=== PATIENT | female | born 1975 | race Caucasian/White ===

== ENCOUNTER 2016-07-16 06:11 | Inpatient (IN) | payer MEDICAID ==
[2016-07-14 17:03] LABS: ADD UMIC NO; URINE BILIRUBIN (Dip) NEGATIVE (NEGATIVE); URINE BLOOD (Dip) NEGATIVE (NEGATIVE); URINE COLOR LT. YELLOW (YELLOW); URINE GLUCOSE (Dip) NEGATIVE (NEGATIVE); URINE KETONES (Dip) NEGATIVE (NEGATIVE); URINE LEUKOCYTE ESTERASE (Dip) NEGATIVE (NEGATIVE); URINE NITRITE (Dip) NEGATIVE (NEGATIVE); URINE TOTAL PROTEIN (Dip) NEGATIVE (NEGATIVE); URINE UROBILINOGEN (Dip) 0.2 E.U./dL (0.1-1.0)
[2016-07-14 17:08] LABS: BASOPHILS % 0.3 % (0.0-2.0); EOSINOPHILS % 0.7 % (0.0-7.0); HEMATOCRIT 34.7 % (37.0-47.0); HEMOGLOBIN 11.7 g/dl (12.0-16.0); LYMPHOCYTES # 1.8 10^3/ul (0.8-2.9); LYMPHOCYTES % 27.8 % (15.0-51.0); MEAN CORPUSCULAR HEMOGLOBIN 29.6 pg (29.0-33.0); MEAN CORPUSCULAR HGB CONC 33.8 g/dl (32.0-37.0); MEAN CORPUSCULAR VOLUME 87.8 fl (82.0-101.0); MEAN PLATELET VOLUME 11.7 fl (7.4-10.4); MONOCYTE # 0.4 10^3/ul (0.3-0.9); MONOCYTES % 6.3 % (0.0-11.0); NEUTROPHIL # 4.2 10^3/ul (1.6-7.5); NEUTROPHILS % 64.9 % (39.0-77.0); PLATELET COUNT 113 10^3/UL (140-440); RED BLOOD COUNT 3.95 10^6/ul (4.20-5.40); RED CELL DISTRIBUTION WIDTH 16.4 % (11.5-14.5); UNCORRECTED WBC 6.5 10^3/ul (4.8-10.8); WHITE BLOOD COUNT 6.5 10^3/ul (4.8-10.8)
[2016-07-14 17:13] LABS: INR 0.89; PARTIAL THROMBOPLASTIN TIME 26.8 Sec (25.0-35.0); PT RATIO 0.9
[2016-07-14 17:15] LABS: ALBUMIN 3.4 g/dl (3.3-4.9); CONDITION 1; LH ANALYZER COMMENTS 1
[2016-07-14 17:16] LABS: POTASSIUM 4.2 mmol/L (3.5-5.1)
[2016-07-14 17:18] LABS: ALBUMIN/GLOBULIN RATIO 1.13; BILIRUBIN,INDIRECT 0.3 mg/dl (0-1.1); BILIRUBIN,TOTAL 0.3 mg/dl (0.2-1.3); CREATININE 0.56 mg/dl (0.44-1.00); TOTAL PROTEIN 6.4 g/dl (6.1-8.1)
[2016-07-14 17:19] LABS: CALCIUM 9.3 mg/dl (8.4-10.2)
[~2016-07-16] VITALS: Ht 162.6 cm; Wt 76.6 kg
[2016-07-16 06:19] VITALS: Ht 162.6 cm; Wt 76.6 kg
[2016-07-16] MEDS ORDERED: MISOPROSTOL 200 MCG TAB PR PRN ×2 (06:30→11:30)
[2016-07-16] MEDS ORDERED: CEFAZOLIN 2 GM/50 ML (PMX) 50 ML IV SCH (06:30)
[2016-07-16] MEDS ORDERED: CARBOPROST 250 MCG INJ IM PRN ×2 (06:30→11:30)
[2016-07-16] MEDS ORDERED: METHYLERGONOVINE 0.2 MG INJ IM PRN ×2 (06:30→11:30)
[2016-07-16] MEDS ORDERED: OXYTOCIN 30 UNITS/LR 500 ML IV SCH (06:30)
[2016-07-16] MEDS ORDERED: OXYTOCIN 30 UNITS/LR 500 ML IV PRN ×2 (06:30→11:30)
[2016-07-16 06:48] LABS: ADD SCAN DIFF NO
[2016-07-16 07:00] LABS: BASOPHILS % 0.2 % (0.0-2.0); EOSINOPHILS # 0.1 10^3/ul (0.0-0.5); EOSINOPHILS % 1.3 % (0.0-7.0); HEMATOCRIT 35.2 % (37.0-47.0); HEMOGLOBIN 11.5 g/dl (12.0-16.0); LYMPHOCYTES # 1.8 10^3/ul (0.8-2.9); LYMPHOCYTES % 29.5 % (15.0-51.0); MEAN CORPUSCULAR HGB CONC 32.7 g/dl (32.0-37.0); MEAN CORPUSCULAR VOLUME 88.9 fl (82.0-101.0); MEAN PLATELET VOLUME 13.6 fl (7.4-10.4); MONOCYTE # 0.3 10^3/ul (0.3-0.9); MONOCYTES % 5.2 % (0.0-11.0); NEUTROPHIL # 3.7 10^3/ul (1.6-7.5); NEUTROPHILS % 62.8 % (39.0-77.0); PLATELET COUNT 118 10^3/UL (140-415); RED BLOOD COUNT 3.96 10^6/ul (4.20-5.40); RED CELL DISTRIBUTION WIDTH 15.2 % (11.5-14.5); WHITE BLOOD COUNT 5.9 10^3/ul (4.8-10.8)
[2016-07-16 07:07] LABS: INR 0.91; PROTIME 12.3 Sec (12.2-14.2)
[2016-07-16 07:08] LABS: PARTIAL THROMBOPLASTIN TIME 25.2 Sec (25.0-35.0)
[2016-07-16] MEDS ORDERED: morphine SULFATE/PF (10 MG/10 ML) INJ ONE (07:29)
[2016-07-16] MEDS ORDERED: ONDANSETRON 4 MG INJ ONE (07:29)
[2016-07-16] MEDS ORDERED: KETOROLAC 30 MG INJ ONE (07:29)
[2016-07-16] MEDS ORDERED: LACTATED RINGER'S 1,000 ML IV ONE (07:30)
[2016-07-16] MEDS ORDERED: EPHEDrine SULFATE 50 MG/5 ML SYG ONE (07:49)
--- NOTE | 2016-07-16 08:10 | PREOPHP ---
DATE OF ADMISSION: 07/16/2016 She is to be admitted tomorrow 03/15/2017 to labor and delivery for a repeat and tubal lig ation at term. HISTORY OF PRESENT ILLNESS: This is a 40-year-old, 6, para 4, with a previous sect ion, who has requested a repeat section for the of this child and a tubal ligation fo r sterilization. The alternatives, benefits, risks, and possible complications of these procedures were discussed with the patient in detail in the office, as well as a 1% failure rate of the tubal l igation. Complications likely like hemorrhage, infection, pelvic organ injury during the procedure, and postoperative complications, including thromboembolic phenomena, were discussed. She was allow ed to ask questions. All her questions were answered to her satisfaction, and she signed the [facility] surgical informed consent. PAST MEDICAL HISTORY: The patient denies any medical problems including cardiovascular disease, christie betes, renal disease, liver disease, thyroid disease, or neurological problems. ALLERGIES: NO KNOWN ALLERGIES. MEDICATIONS: She takes vitamins and iron only. OBSTETRICAL HISTORY: She has had, counting this one, 6 pregnancies, 4 of which I have delivered. T he last one was delivered by section at this hospital on 07/28/2009. FAMILY HISTORY: Noncontributory. REVIEW OF SYSTEMS: A 12-point review of systems is noncontributory. PHYSICAL EXAMINATION: GENERAL: Well-developed and nourished with a height 5 feet 5 inches and a weight of 171 pounds. VITAL SIGNS: Showed the temperature to be 97.2, blood pressure 170/67, respirations 16 per minute, pulse is 72 per minute, regular. HEENT: Within normal limits. Pupils are PERRLA. NECK: Supple. The thyroid is not palpable. There is no lymphadenopathy. BREASTS: Show no masses or lumps. LUNGS: Clear to percussion and auscultation. HEART: Normal sinus rhythm without a murmur. ABDOMEN: Soft. Uterus enlarged to 36 cm above pubic bone, single baby, longitudinal lie, cephalic presentation. heart tone 140-160 per minute. PELVIC: Normal external genitalia. Cervix is long, closed. Membranes are intact. EXTREMITIES: Within normal limits. NEUROLOGIC: Also normal. IMPRESSION: 1. 39 weeks' gestation. 2. Previous section. 3. Multiparity. The patient desires sterilization at the time of repeat section. Dictated By: CAROLINA BERG MD CR/NTS Conf#: [id number] DID#: [id number] CC: HEVER HERNANDEZ MD;*EndCC*
[2016-07-16] MEDS ORDERED: NALOXONE (0.4 MG/ML) INJ IV PRN (09:00)
[2016-07-16] MEDS ORDERED: HYDROmorphONE 1 MG/ML SYG IV PRN ×3 (09:00)
[2016-07-16] MEDS ORDERED: METOCLOPRAMIDE 10 MG INJ IV PRN (09:00)
[2016-07-16] MEDS ORDERED: DIPHENHYDRAMINE 50 MG INJ IV PRN ×2 (09:00)
[2016-07-16] MEDS ORDERED: MEPERIDINE 25 MG INJ IV PRN (09:00)
[2016-07-16] MEDS ORDERED: HYDROmorphONE (0.2 MG/ML) 10ML SYG IV PRN ×3 (09:00)
[2016-07-16] MEDS ORDERED: ONDANSETRON 4 MG INJ IV PRN ×2 (09:00)
[2016-07-16 11:30] VITALS: BP 121/74; PULSE 78; RESP 20
[2016-07-16] MEDS ORDERED: OXYCODONE/ACETAMINOPHEN (5/325) TAB PO PRN (11:30)
[2016-07-16] MEDS ORDERED: LANOLIN 7 GM TUBE TOP PRN (11:30)
--- NOTE | 2016-07-16 13:08 | OPR ---
DATE OF OPERATION: 07/16/2016 PREOPERATIVE DIAGNOSES 1. Thirty-nine weeks' gestation. 2. Previous section. 3. Multiparity. PREOPERATIVE DIAGNOSES 1. Thirty-nine weeks' gestation. 2. Previous section. 3. Multiparity. OPERATION PERFORMED: 1. Repeat low segment transverse section. 2. Bilateral salpingectomy. SURGEON: Carolina Waters MD TEAM PSYCHOLOGIST: Uli Watkins MD ANESTHESIOLOGIST: Dr. Reeves. ANESTHESIOLOGY: Spinal. ESTIMATED BLOOD LOSS: 600 mL. COMPLICATIONS: None. SPECIMENS: Portions of both fallopian tubes were sent to Pathology. FINDINGS: Baby girl, scores of 8 and 9. PROCEDURE AND FINDINGS: With the patient under spinal anesthesia, she was laid on the table in the dorsal recumbent position, tilted to the left side. She had a Leonard catheter draining her bladder. Her abdomen and thighs were prepped with ChloraPrep and, after 3 minutes, she was draped in the usu al sterile fashion for this procedure. A Pfannenstiel incision was done and carried through all lay ers of the abdominal wall. The uterine segment was opened transversely high and a living female carrie antony was delivered from an OP position and handed to the respiratory team trial consultant, who found her to mcintyre ve scores of 8 at first minute and 9 at five minutes. Sample cord blood was obtained. The pl marietta was delivered. The uterine cavity was cleaned with a clean laparotomy pad. The incision in the uterus was closed with a continuous running stitch of 0 PDS. Good hemostasis was obtained. The n, the tubal ligation was carried out starting on the left side, picking up the tube in its mid port ion with a Raleigh clamp and tying it on its base twice with 0 plain catgut. A portion of the tube was cut and sent to Pathology. The same was repeated on the contralateral side. The pelvis was tho roughly cleaned with clean moist laparotomy pads. The first count of sponges was correct at this po int. The incisions were checked for bleeders and there were none. The uterine incision was covered with Interceed to avoid future adhesions. Then, the abdomen of the patient was closed in layers st arting with the peritoneum with continuous stitch of 0 chromic catgut. The fascia was closed with c ontinuous running stitch of 0 Vicryl. Finally, the edges of the skin were closed with subcuticular 4-0 Monocryl. Sterile compressive dressing was applied and the patient was taken to recovery room w ith all vital signs stable. EBL was 600 mL of blood. Needle, sponge, and instrument count at the e nd of the procedure was correct twice. Dictated By: CAROLINA WATERS MD CR/NTS Conf#: [id number] DID#: [id number] CC: ROOPA REEVES MD; ULI WATKINS MD;*EndCC*
[2016-07-16] MEDS: LACTATED RINGER'S 1,000 ML IV SCH (14:12)
[2016-07-16] MEDS: CEFAZOLIN 2 GM/50 ML (PMX) 50 ML IV SCH ×2 (14:26→22:38)
[2016-07-16 16:00] VITALS: BP 134/82; PULSE 79; RESP 18
[2016-07-16] MEDS: KETOROLAC 30 MG INJ IV PRN (18:21)
[2016-07-16 20:05] VITALS: BP 100/56; PULSE 67; RESP 16
[2016-07-16] MEDS: SENNA/DOCUSATE NA (8.6MG/50MG) TAB PO SCH (20:53)
[2016-07-17 00:15] VITALS: BP 123/69; PULSE 74; RESP 18
[2016-07-17] MEDS: LACTATED RINGER'S 1,000 ML IV SCH ×2 (00:17→03:19)
[2016-07-17] MEDS: KETOROLAC 30 MG INJ IV PRN ×2 (01:52→08:36)
[2016-07-17 04:00] VITALS: BP 100/59; PULSE 80; RESP 18
[2016-07-17] MEDS: CEFAZOLIN 2 GM/50 ML (PMX) 50 ML IV SCH (06:30)
[2016-07-17 07:42] LABS: ADD SCAN DIFF NO
[2016-07-17 07:48] LABS: ABNORMAL IP MESSAGE 1; BASOPHILS % 0.1 % (0.0-2.0); EOSINOPHILS # 0.1 10^3/ul (0.0-0.5); EOSINOPHILS % 0.6 % (0.0-7.0); HEMATOCRIT 26.4 % (37.0-47.0); HEMOGLOBIN 8.8 g/dl (12.0-16.0); LYMPHOCYTES # 1.2 10^3/ul (0.8-2.9); LYMPHOCYTES % 14.4 % (15.0-51.0); MEAN CORPUSCULAR HEMOGLOBIN 29.8 pg (29.0-33.0); MEAN CORPUSCULAR HGB CONC 33.3 g/dl (32.0-37.0); MEAN CORPUSCULAR VOLUME 89.5 fl (82.0-101.0); MEAN PLATELET VOLUME 13.2 fl (7.4-10.4); MONOCYTE # 0.3 10^3/ul (0.3-0.9); NEUTROPHIL # 6.7 10^3/ul (1.6-7.5); NEUTROPHILS % 80.3 % (39.0-77.0); PLATELET COUNT 92 10^3/UL (140-415); RED BLOOD COUNT 2.95 10^6/ul (4.20-5.40); RED CELL DISTRIBUTION WIDTH 15.6 % (11.5-14.5); WHITE BLOOD COUNT 8.4 10^3/ul (4.8-10.8)
[2016-07-17 08:00] VITALS: BP 116/71; PULSE 70; RESP 18
[2016-07-17] MEDS: SENNA/DOCUSATE NA (8.6MG/50MG) TAB PO SCH ×2 (08:36→21:15)
--- NOTE | 2016-07-17 10:40 | PN ---
Date/Time of Note Date/Time of Note DATE: 07/17/16 TIME: 10:38 OB Subjective Subjective Subjective Post C Section day 1 Patient is doing well, Ambulatory She is afebrile Abdomen is soft , Fundus is firm Moderate amount of lochia Breasts are soft, Nipples are intact No calf tenderness. (Incision is clean Laboratory Tests Test 07/17/16 07:05 Basophils # 0.010^3/ul Basophils % 0.1% Eosinophils # 0.110^3/ul Eosinophils % 0.6% Hematocrit 26.4% Hemoglobin 8.8g/dl Lymphocytes # 1.210^3/ul Lymphocytes % 14.4% Mean Corpuscular Hemoglobin 29.8pg Mean Corpuscular Hemoglobin Concent 33.3g/dl Mean Corpuscular Volume 89.5fl Mean Platelet Volume 13.2fl Monocytes # 0.310^3/ul Monocytes % 4.0% Neutrophils # 6.710^3/ul Neutrophils % 80.3% Nucleated Red Blood Cells # 0.010^3/ul Nucleated Red Blood Cells % 0.0/100WBC Platelet Count 9210^3/UL Red Blood Count 2.9510^6/ul Red Cell Distribution Width 15.6% White Blood Count 8.410^3/ul Current Medications Medications (Trade) Dose Ordered Sig/Anitra Route PRN Reason Start Time Stop Time Status Last Admin Dose Admin Cefazolin Sodium/ Dextrose 50 ml @ 100 mls/hr ONCE IV 07/16/16 06:30 07/16/16 11:23 DC Oxytocin/Lactated Ringer's 500 ml @ 125 mls/hr ONCE IV 07/16/16 06:30 07/16/16 11:23 DC 07/16/16 09:30 Oxytocin/Lactated Ringer's 500 ml @ 0 mls/hr ONCE PRN IV For Hemorrhage Management 07/16/16 06:30 07/16/16 11:23 DC Methylergonovine Maleate (Methergine) 0.2 mg ONCE PRN IM VAGINAL BLEEDING 07/16/16 06:30 07/16/16 11:23 DC Carboprost Tromethamine (Hemabate) 250 mcg ONCE PRN IM VAGINAL BLEEDING 07/16/16 06:30 07/16/16 11:23 DC Misoprostol 1000 mcg 1,000 mcg ONCE PRN MA VAGINAL BLEEDING 07/16/16 06:30 07/16/16 11:23 DC Lactated Ringer's (Lr) 1,000 ml @ 1,000 mls/hr Q1H ONCE IV 07/16/16 07:30 07/16/16 08:54 DC 07/16/16 07:24 Morphine Sulfate (Duramorph) 10 mg STK-MED ONCE .ROUTE 07/16/16 07:29 07/16/16 07:30 DC Ondansetron HCl (Zofran Inj) 4 mg STK-MED ONCE .ROUTE 07/16/16 07:29 07/16/16 07:30 DC Ketorolac Tromethamine (Toradol) 30 mg STK-MED ONCE .ROUTE 07/16/16 07:29 07/16/16 07:30 DC Ephedrine Sulfate 50 mg STK-MED ONCE .ROUTE 07/16/16 07:49 07/16/16 07:50 DC Hydromorphone HCl (Dilaudid (Rec)) 0.2 mg PACU ORDER PRN IV MILD PAIN LEVEL 1-3 07/16/16 09:00 07/16/16 11:23 DC Hydromorphone HCl (Dilaudid (Rec)) 0.4 mg PACU ORDER PRN IV MODERATE PAIN LEVEL 4-6 07/16/16 09:00 07/16/16 11:23 DC Hydromorphone HCl (Dilaudid (Rec)) 0.6 mg PACU ORDER PRN IV SEVERE PAIN LEVEL 7-10 07/16/16 09:00 07/16/16 11:23 DC Ondansetron HCl (Zofran Inj) 4 mg PACU ORDER PRN IV NAUSEA AND/OR VOMITING 07/16/16 09:00 07/16/16 11:23 DC Metoclopramide HCl (Reglan) 10 mg PACU ORDER PRN IV NAUSEA AND/OR VOMITING 07/16/16 09:00 07/16/16 11:23 DC Meperidine HCl (Demerol) 25 mg PACU ORDER PRN IV POST-OP RIGORS 07/16/16 09:00 07/16/16 11:23 DC Diphenhydramine HCl (Benadryl) 25 mg PACU ORDER PRN IV PRURITUS 07/16/16 09:00 07/16/16 11:23 DC Naloxone HCl (Narcan) 0.1 mg Q2M PRN IV FOR RESP RATE 8 OR LESS 07/16/16 09:00 07/17/16 08:59 DC Ketorolac Tromethamine (Toradol) 30 mg Q6H PRN IV PAIN 07/16/16 09:00 07/17/16 08:59 DC 07/17/16 08:36 Hydromorphone HCl (Dilaudid) 1 mg Q3H PRN IV BREAKTHROUGH PAIN 07/16/16 09:00 07/17/16 08:59 DC Hydromorphone HCl (Dilaudid) 0.2 mg Q3H PRN IV PAIN LEVEL 1-5 07/16/16 09:00 07/17/16 08:59 DC Hydromorphone HCl (Dilaudid) 0.4 mg Q3H PRN IV PAIN LEVEL 6-10 07/16/16 09:00 07/17/16 08:59 DC Diphenhydramine HCl (Benadryl) 25 mg Q6H PRN IV ITCHING 07/16/16 09:00 07/17/16 08:59 DC Ondansetron HCl 4 mg 4 mg Q6H PRN IV NAUSEA AND/OR VOMITING 07/16/16 09:00 07/17/16 08:59 DC Lactated Ringer's 1,000 ml @ 125 mls/hr Q8H IV 07/16/16 11:19 07/17/16 10:29 DC 07/17/16 00:17 Cefazolin Sodium/ Dextrose (Ancef 2 Gm/50 ml (Pmx)) 50 ml @ 100 mls/hr Q8H IV 07/16/16 11:30 07/17/16 03:59 DC 07/17/16 06:30 Oxycodone/ Acetaminophen (Percocet (5/ 325)) 1 tab Q4H PRN PO PAIN LEVEL 4-6 07/16/16 11:30 Oxycodone/ Acetaminophen (Percocet (5/ 325)) 2 tab Q4H PRN PO PAIN LEVEL 7-10 07/16/16 11:30 Ibuprofen (Motrin) 800 mg Q8 PO 07/17/16 14:00 Simethicone (Mylicon) 160 mg Q8H PRN PO DISTENSION/GAS/BLOATING 07/16/16 11:30 Senna/Docusate Sodium (Senokot-S) 1 tab BID PO 07/16/16 21:00 07/17/16 08:36 Lanolin (Ozf-G-Sjonhq) 1 applic BEDSIDE MEDICATION PRN TOP BEDSIDE FOR AUSTYN TO NIPPLES 07/16/16 11:30 07/16/16 18:19 Diphtheria/ Tetanus/Acell Pertussis 0.5 ml 0.5 ml ONCE ONCE IM* 07/19/16 09:00 07/19/16 09:01 Oxytocin/Lactated Ringer's 500 ml @ 0 mls/hr ONCE PRN IV For Hemorrhage Management 07/16/16 11:30 Methylergonovine Maleate (Methergine) 0.2 mg ONCE PRN IM VAGINAL BLEEDING 07/16/16 11:30 Carboprost Tromethamine (Hemabate) 250 mcg ONCE PRN IM VAGINAL BLEEDING 07/16/16 11:30 Misoprostol (Cytotec) 1,000 mcg ONCE PRN MA VAGINAL BLEEDING 07/16/16 11:30 Breast feeding the new born. KOREY STARR MD Jul 17, 2016 10:40
[2016-07-17 11:23] LABS: PLATELET ESTIMATE PLT APPEAR DECREASED
[2016-07-17] MEDS: IBUPROFEN 800 MG TAB PO SCH ×2 (13:05→21:15)
[2016-07-17 18:04] VITALS: BP 117/81; PULSE 69
[2016-07-17 20:00] VITALS: BP 113/67; PULSE 73; RESP 18
[2016-07-18] MEDS: OXYCODONE/ACETAMINOPHEN (5/325) TAB PO PRN (00:42)
[2016-07-18 04:00] VITALS: BP 115/70; PULSE 68; RESP 17
[2016-07-18] MEDS: IBUPROFEN 800 MG TAB PO SCH ×3 (05:31→21:30)
[2016-07-18 08:10] VITALS: BP 118/62; PULSE 67; RESP 18
[2016-07-18] MEDS ORDERED: INFLUENZA VIRUS VACCINE 0.5 ML (DISPENSING) IM* ONE (09:00)
[2016-07-18] MEDS: SENNA/DOCUSATE NA (8.6MG/50MG) TAB PO SCH ×2 (09:00→21:30)
--- NOTE | 2016-07-18 15:11 | QN ---
Documentation Comment pt doing well vss exam wnl cdi ap pod 2 pt doing well anemia- stable contirue care SO GONZALEZ MD Jul 18, 2016 15:11
[2016-07-18 16:10] VITALS: BP_SYST 118; BP_SYST 136; BP_DIAS 62; BP_DIAS 88; PULSE 67; PULSE 75; RESP 14; RESP 18
[2016-07-18 19:30] VITALS: BP 138/78; PULSE 67; RESP 18
[2016-07-19 04:00] VITALS: BP 117/69; PULSE 70; RESP 18
[2016-07-19] MEDS: IBUPROFEN 800 MG TAB PO SCH ×2 (05:56→14:56)
--- NOTE | 2016-07-19 08:41 | PD.PPDC ---
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
[2016-07-19 08:49] VITALS: BP 118/70; PULSE 62; RESP 16
[2016-07-19] MEDS: SENNA/DOCUSATE NA (8.6MG/50MG) TAB PO SCH (08:53)
[2016-07-19] MEDS ORDERED: DIPHTH/TET/ACEL PERTUSS (ADULT) 0.5 ML VIAL IM* ONE (09:00)
[2016-07-19] MEDS ORDERED: MAGNESIUM HYDROXIDE 30ML CUP PO ONE (11:00)
[2016-07-19] MEDS: OXYCODONE/ACETAMINOPHEN (5/325) TAB PO PRN (11:27)
[2016-07-19 16:00] VITALS: BP 127/82; PULSE 76; RESP 16
--- NOTE | 2016-07-19 22:49 | DS ---
DATE OF ADMISSION: 07/16/2016 DATE OF DISCHARGE: 07/19/2016 REASON FOR ADMISSION: Elective repeat section. FINAL DIAGNOSES: 1. Term intrauterine . 2. Repeat . 3. Multiparity. 4. Tubal ligation. SUMMARY: This 41-year-old 5, para 3, had a previous section. She was admitted at term. A repeat was carried out as well as tubal ligation under spinal anesthesia. She mcintyre s tolerated the procedure well. Postoperatively, she has developed mild anemia and was treated with iron. She, today, is passing gas with no problems. The incision is healing well. She is discharg ed was written instructions. She is to be on a regular diet and to make an appointment for followup visit in the office in 1 week. She was given a prescription for Percocet to use 1 or 2 tablets eric ry 6 hours p.r.n. pain and is discharged in good condition. Dictated By: CAROLINA MORILLO/GINA Conf#: [id number] DID#: [id number]
== END 2016-07-19 18:23 | disposition home or self-care (01) | DRG 766 ==
LOC: L-D 06:11 → PP1 11:06
PROVIDERS: ADMIT Specialist; ATTEND Specialist
PROC: 0UB70ZZ Excision of Bilateral Fallopian Tubes, Open Approach (ICD-10-PCS; 2016-07-16)
PROC: 10D00Z1 Extraction of Products of Conception, Low, Open Approach (ICD-10-PCS; principal; 2016-07-16 07:30)
DX: O34.211 Maternal care for low transverse scar from previous cesarean delivery (principal); Z30.2 Encounter for sterilization; Z3A.39 39 weeks gestation of pregnancy; Z37.0 Single live birth
CPT/HCPCS: 80053; 81003; 84703; 85025; 85610; 85730; 86592; 86850; 86900; 86901; 87340; 88302; 90686; 90715; 99464; J0690; J1885; J2274; J2405; J2590; J7120